=== PATIENT | male | born 1970 | race Caucasian/White ===

== ENCOUNTER 2022-10-24 06:29 | Day surgery (SDC) | payer OTHER, SELFPAY ==
[2022-10-24 06:47] VITALS: BMI 20.7
[2022-10-24 06:53] VITALS: BP 125/69; PULSE 79; RESP 20; TEMP 36.5; O2SAT 98
[2022-10-24] MEDS: LACTATED RINGERS 1,000 ML 42 ML IV ×2 (07:03→08:49)
--- NOTE | 2022-10-24 07:39 | PM.HP.1 ---
History of Present Illness History of Present Illness Date Patient Seen: 10/24/22 Time Patient Seen: 07:39 Chief complaint: Right Hernia Repair - Inguinal Narrative: Brien is here for his right inguinal hernia repair with mesh. See the office note from September for details. COUNTS INCLUDE 234 BEDS AT THE [facility] Medical History Family hx of colon cancer Warthin's tumor Surgical History (Updated 10/24/22 @ 06:53 by Han Felipe RN) H/O removal of cyst Family History Grandfather Cancer Social History household members: spouse Smoking Status: Current every day smoker alcohol intake: former Meds Home Medications and Allergies Home Medications Medication Instructions Recorded Confirmed Type No Known Home Medications 09/13/22 10/24/22 History Allergies Allergy/AdvReac Type Severity Reaction Status Date / Time No Known Drug Allergies Allergy Verified 10/24/22 06:46 Exam Vital Signs (past 8 hours): - 10/24/22 06:53 Temperature 97.7 F Pulse Rate 79 Respiratory Rate 20 Blood Pressure 125/69 Pulse Oximetry 98 Oxygen Delivery Method Room Air Oxygen Delivery Method Room Air Const General: healthy appearing Assessment & Plan Assessment and plan (1) Right inguinal hernia: Status: Acute Plan Plan to proceed with open right inguinal hernia repair with mesh.
[2022-10-24] MEDS: CEFAZOLIN 2 GM/100 ML PREMIX 100 ML IV (08:00)
[2022-10-24] MEDS: BUPIVACAINE 0.5% (PF) 30 ML, EPINEPHrine 0.15 MG INJ (08:07)
--- NOTE | 2022-10-24 08:10 | SUR.OPER ---
Supine on padded OR bed, head on pillow, arms secured on padded arm boards at <90 degrees abduction, legs uncrossed, safety belt at thigh, tape over blanket over lower legs.
[2022-10-24 09:17] VITALS: BP 125/73; PULSE 76; RESP 17; TEMP 36.6; O2SAT 96
[2022-10-24 09:21] VITALS: BP 119/73; PULSE 72; RESP 12; TEMP 36.7; O2SAT 95
--- NOTE | 2022-10-24 09:22 | P.OP_ITS ---
Operative Date/Time/Diagnoses Date of procedure: 10/24/22 Time of procedure: 09:22 Pre-op diagnosis: Right inguinal hernia Post-op diagnosis: same Procedure & Clinicians Procedure: Open right inguinal hernia repair with mesh Same procedure as scheduled: Yes Surgeon: Reese Young Anesthesia Type: General Operative Notes Procedure in detail: Preoperative antibiotic was administered. The patient was brought to the operating room and placed on the table in supine position general anesthesia was induced. The right groin was prepped and draped in the normal fashion and a time-out was performed. Roughly 10 mL of local anesthetic were injected into the skin and subcutaneous adipose tissue over the right groin. A 6 cm incision was made over the right inguinal canal. Dissection was carried down through the subcutaneous adipose tissue. We exposed the external oblique aponeurosis in the direction of the fibers. Additional local was injected deep to the aponeurosis. A 15 blade scalpel was used to abdelrahman the external oblique aponeurosis. Metzenbaum scissors were used to carefully open the aponeurosis in the direction of the fibers taking care not to injure the underlying ilioinguinal nerve which was well seen and protected. We completely exposed the inguinal canal. The cord was dissected free from the inguinal ligament and floor of the inguinal canal and the external oblique aponeurosis was dissected off of the internal oblique taking care not to injure the hypogastric nerve. We encircled the cord with a Trafford drain for retraction. There was a rather large indirect defect. A bulky cord lipoma and the hernia sac were dissected free and reduced back to the abdominal cavity. We then placed a polypropylene mesh against the floor of the inguinal canal. The mesh was secured with multiple interrupted 3-0 Prolene sutures to the pubic tubercle and shelving edge of the inguinal ligament as well as to the conjoint tendon medially. We overlapped the tails to recreate an internal ring and secured the medial tail to the inguinal ligament with additional sutures. We injected some more local into the fatty tissue in the inguinal canal and cord. Finally, we removed the Trafford drain and closed the external oblique fascia with a running 3-0 Vicryl suture. Skin was closed with interrupted 3-0 Vicryl dermal sutures and a running 4 Monocryl subcuticular stitch. EBL 5 mL The patient was awakened and brought to recovery room. Post-operative Condition: stable Disposition: PACU
[2022-10-24 09:26] VITALS: BP 113/76; PULSE 81; RESP 13; TEMP 36.6; O2SAT 97
[2022-10-24 09:31] VITALS: BP 126/73; PULSE 74; RESP 14; TEMP 36.7; O2SAT 97
[2022-10-24 09:35] VITALS: BP 126/72; PULSE 74; RESP 14; TEMP 36.7; O2SAT 99
--- NOTE | 2022-10-24 09:52 | SUR.PHASEII ---
Patient reported numbness to his tongue, left tip. No other deficits noted. Dr. Pacheco notified. No new orders.
== END 2022-10-24 10:00 | disposition home or self-care (01) ==
PROVIDERS: PCP Family Medicine; Referring Provider Surgery; Visit Provider Surgery
PROC: (CPT 49505; principal; 2022-10-24 07:45)
DX: K40.90 Unilateral inguinal hernia, without obstruction or gangrene, not specified as recurrent (principal); D17.6 Benign lipomatous neoplasm of spermatic cord
CPT/HCPCS: 49505; J0171; J0690; J1100; J2405; J2704; J3010